=== PATIENT | female | born 1980 | race Caucasian/White ===

== ENCOUNTER → 2020-03-02 16:00 | Outpatient (BNVA) | payer OTHER, SELFPAY | PROVIDERS: Family Provider Social Worker Clinical; Referring Provider Psychiatry & Neurology Psychiatry; Visit Provider Psychiatry & Neurology Psychiatry | DX: F33.2 Major depressive disorder, recurrent severe without psychotic features (principal) | CPT/HCPCS: 80061; 83036 ==

== ENCOUNTER → 2021-01-26 13:45 | Outpatient (BNVA) | payer MEDICAID, SELFPAY ==
[2020-03-11 13:48] VITALS: BP 153/101; BMI 37.7
== END ==
PROVIDERS: Family Provider Social Worker Clinical; PCP Family Medicine; Visit Provider Family Medicine
DX: I10 Essential (primary) hypertension (principal); K21.9 Gastro-esophageal reflux disease without esophagitis; G47.33 Obstructive sleep apnea (adult) (pediatric); R63.1 Polydipsia; Z13.1 Encounter for screening for diabetes mellitus; R53.83 Other fatigue; Z83.3 Family history of diabetes mellitus; K21.00 Gastro-esophageal reflux disease with esophagitis, without bleeding; F32.9 Major depressive disorder, single episode, unspecified; Z76.89 Persons encountering health services in other specified circumstances
CPT/HCPCS: 80053; 80061; 82607; 82652; 83036; 84443; 85025

== ENCOUNTER → 2021-02-28 10:52 | Outpatient (BNVA) | payer MEDICAID, SELFPAY ==
[2020-03-11 13:48] VITALS: BP 153/101; BMI 37.7
== END ==
PROVIDERS: Family Provider Social Worker Clinical; PCP Family Medicine; Visit Provider Family Medicine
DX: B88.0 Other acariasis (principal); Z12.4 Encounter for screening for malignant neoplasm of cervix; Z12.39 Encounter for other screening for malignant neoplasm of breast; Z01.419 Encounter for gynecological examination (general) (routine) without abnormal findings; J02.9 Acute pharyngitis, unspecified; J30.1 Allergic rhinitis due to pollen; Z12.31 Encounter for screening mammogram for malignant neoplasm of breast
CPT/HCPCS: 87880; 88175

== ENCOUNTER 2021-04-26 09:25 | Outpatient (CLI) | payer MEDICAID, SELFPAY ==
[2021-03-28 12:20] VITALS: BP 128/88; BMI 38.4
== END 2021-04-26 09:26 | disposition home or self-care (01) ==
LOC: SLEEP 09:25
PROVIDERS: Family Provider Social Worker Clinical; PCP Family Medicine; Visit Provider Family Medicine
DX: G47.33 Obstructive sleep apnea (adult) (pediatric) (principal)
CPT/HCPCS: 95810

== ENCOUNTER 2021-06-27 08:27 | Outpatient (CLI) | payer MEDICAID, SELFPAY ==
[2021-03-28 12:20] VITALS: BP 128/88; BMI 38.4
--- NOTE | 2021-06-27 08:30 | MM_ITS ---
WS: [id number] Exam: [id number] Date/Time of Exam: 06/27/2021 8:37 AM Reason For Exam: Z12.39 - Encounter for other screening for malignant neop... VIEWS: MLO and CC views both breasts. Comparison made with prior exam of 09/28/2015. Findings: There was no sign of mass, architectural distortion or suspicious calcification in either breast. He terogeneously dense MM/[id number] Impression: BI-RADS: 2-Benign FOLLOW-UP: 1 Year Follow-up This mammogram was also analyzed by the Computer Aided Detection System R2 Imag e Health And Safety Technician.
== END 2021-06-27 08:28 | disposition home or self-care (01) ==
LOC: RADSHAW 08:30
PROVIDERS: PCP Family Medicine; Visit Provider Family Medicine
DX: Z12.31 Encounter for screening mammogram for malignant neoplasm of breast (principal)
CPT/HCPCS: 77067

== ENCOUNTER → 2021-09-08 17:55 | Outpatient (BNVA) | payer OTHER, SELFPAY ==
[2021-03-28 12:20] VITALS: BP 128/88; BMI 38.4
== END ==
PROVIDERS: PCP Family Medicine; Visit Provider Counselor Professional
DX: F33.2 Major depressive disorder, recurrent severe without psychotic features (principal); F41.1 Generalized anxiety disorder
CPT/HCPCS: 90834

== ENCOUNTER → 2021-10-06 15:57 | Outpatient (BNVA) | payer OTHER, SELFPAY ==
[2021-03-28 12:20] VITALS: BP 128/88; BMI 38.4
== END ==
PROVIDERS: PCP Family Medicine; Visit Provider Counselor Professional
DX: F33.2 Major depressive disorder, recurrent severe without psychotic features (principal); F41.1 Generalized anxiety disorder
CPT/HCPCS: 90834

== ENCOUNTER → 2021-10-31 15:36 | Outpatient (BNVA) | payer MEDICAID, OTHER, SELFPAY ==
[2021-03-28 12:20] VITALS: BP 128/88; BMI 38.4
== END ==
PROVIDERS: PCP Family Medicine; Visit Provider Family Medicine
DX: I10 Essential (primary) hypertension (principal); K21.9 Gastro-esophageal reflux disease without esophagitis; J30.1 Allergic rhinitis due to pollen; G47.33 Obstructive sleep apnea (adult) (pediatric); K21.00 Gastro-esophageal reflux disease with esophagitis, without bleeding; Z13.220 Encounter for screening for lipoid disorders; Z13.6 Encounter for screening for cardiovascular disorders
CPT/HCPCS: 80053; 80061

== ENCOUNTER → 2021-12-12 15:30 | Outpatient (BNVA) | payer OTHER, SELFPAY ==
[2021-03-28 12:20] VITALS: BP 128/88; BMI 38.4
== END ==
PROVIDERS: PCP Family Medicine; Visit Provider Counselor Professional
DX: F33.2 Major depressive disorder, recurrent severe without psychotic features (principal); F41.1 Generalized anxiety disorder
CPT/HCPCS: 90832

== ENCOUNTER → 2022-02-01 17:28 | Outpatient (BNVA) | payer OTHER, SELFPAY ==
[2021-03-28 12:20] VITALS: BP 128/88; BMI 38.4
== END ==
PROVIDERS: PCP Family Medicine; Visit Provider Psychiatry & Neurology Psychiatry
DX: F33.2 Major depressive disorder, recurrent severe without psychotic features (principal)
CPT/HCPCS: 80061

== ENCOUNTER → 2022-06-19 10:13 | Outpatient (BNVA) | payer OTHER, SELFPAY ==
[2021-03-28 12:20] VITALS: BP 128/88; BMI 38.4
== END ==
PROVIDERS: PCP Family Medicine; Visit Provider Family Medicine
DX: I10 Essential (primary) hypertension (principal); Z23 Encounter for immunization; J30.1 Allergic rhinitis due to pollen; J40 Bronchitis, not specified as acute or chronic
CPT/HCPCS: 80053

== ENCOUNTER → 2022-07-31 15:46 | Outpatient (BNVA) | payer MEDICAID, OTHER, SELFPAY ==
[2021-03-28 12:20] VITALS: BP 128/88; BMI 38.4
== END ==
PROVIDERS: PCP Family Medicine; Visit Provider Family Medicine
DX: G47.00 Insomnia, unspecified (principal); I10 Essential (primary) hypertension; F41.9 Anxiety disorder, unspecified; R30.0 Dysuria; Z20.2 Contact with and (suspected) exposure to infections with a predominantly sexual mode of transmission; G47.33 Obstructive sleep apnea (adult) (pediatric); G47.01 Insomnia due to medical condition; R25.2 Cramp and spasm; N39.0 Urinary tract infection, site not specified
CPT/HCPCS: 80048; 81000; 83735; 87086; 87491; 87591; 87661

== ENCOUNTER → 2022-09-06 09:28 | Outpatient (BNVA) | payer MEDICAID, SELFPAY ==
[2021-03-28 12:20] VITALS: BP 128/88; BMI 38.4
== END ==
PROVIDERS: PCP Family Medicine; Visit Provider Family Medicine
DX: B88.0 Other acariasis (principal); K21.9 Gastro-esophageal reflux disease without esophagitis; I10 Essential (primary) hypertension; F41.9 Anxiety disorder, unspecified; J30.1 Allergic rhinitis due to pollen; K21.00 Gastro-esophageal reflux disease with esophagitis, without bleeding; G47.00 Insomnia, unspecified; M54.50 Low back pain, unspecified
CPT/HCPCS: 72100

== ENCOUNTER → 2023-03-29 09:52 | Outpatient (BNVA) | payer MEDICAID, SELFPAY ==
[2021-03-28 12:20] VITALS: BP 128/88; BMI 38.4
== END ==
PROVIDERS: PCP Family Medicine; Visit Provider Family Medicine
DX: I10 Essential (primary) hypertension (principal); Z13.220 Encounter for screening for lipoid disorders; Z13.6 Encounter for screening for cardiovascular disorders; B97.89 Other viral agents as the cause of diseases classified elsewhere; Z20.822 Contact with and (suspected) exposure to COVID-19; K04.7 Periapical abscess without sinus; J32.9 Chronic sinusitis, unspecified
CPT/HCPCS: 80053; 80061; 85025; 87400; 87426

== ENCOUNTER → 2024-01-28 10:05 | Outpatient (BNVA) | payer OTHER, SELFPAY ==
[2021-03-28 12:20] VITALS: BP 128/88; BMI 38.4
== END ==
PROVIDERS: PCP Family Medicine; Visit Provider Family Medicine
DX: R30.0 Dysuria (principal)
CPT/HCPCS: 81000

== ENCOUNTER → 2024-02-18 11:06 | Outpatient (BNVA) | payer MEDICAID, SELFPAY ==
[2021-03-28 12:20] VITALS: BP 128/88; BMI 38.4
== END ==
PROVIDERS: PCP Family Medicine; Visit Provider Nurse Practitioner Family
DX: R30.0 Dysuria (principal)
CPT/HCPCS: 81000; 87086

== ENCOUNTER → 2024-03-11 08:41 | Outpatient (BNVA) | payer MEDICAID, SELFPAY ==
[2021-03-28 12:20] VITALS: BP 128/88; BMI 38.4
== END ==
PROVIDERS: PCP Family Medicine; Visit Provider Family Medicine
DX: I10 Essential (primary) hypertension (principal); D64.9 Anemia, unspecified
CPT/HCPCS: 80053; 80061; 85025

== ENCOUNTER → 2025-04-09 16:19 | Outpatient (BNVA) | payer MEDICAID, SELFPAY ==
[2021-03-28 12:20] VITALS: BP 128/88; BMI 38.4
== END ==
PROVIDERS: PCP Family Medicine; Referring Provider Psychiatry & Neurology Psychiatry; Visit Provider Psychiatry & Neurology Psychiatry
DX: F43.12 Post-traumatic stress disorder, chronic (principal); F33.1 Major depressive disorder, recurrent, moderate; F41.1 Generalized anxiety disorder
CPT/HCPCS: 80061; 83036

== ENCOUNTER → 2025-05-25 13:53 | Outpatient (BNVA) | payer MEDICAID, SELFPAY ==
[2025-04-15 10:24] VITALS: BP 156/103; BMI 38.1
== END ==
PROVIDERS: PCP Family Medicine; Visit Provider Family Medicine
DX: R30.0 Dysuria (principal); Z51.81 Encounter for therapeutic drug level monitoring; Z13.1 Encounter for screening for diabetes mellitus; I10 Essential (primary) hypertension
CPT/HCPCS: 80048; 81000; 83036; 87086